=== PATIENT | male | born 1955 | race Two or more races ===

== ENCOUNTER 2021-08-13 09:01 | Day surgery (SDC) | payer OTHER | END 2021-08-13 15:20 | disposition home or self-care (01) | LOC: AMB-ENDOS 09:01 | PROVIDERS: ATTEND Surgery | DX: D12.4 Benign neoplasm of descending colon (principal); Z20.822 Contact with and (suspected) exposure to COVID-19 ==

== ENCOUNTER 2024-07-17 12:45 | Inpatient (IN) | payer OTHER ==
[2024-07-17] MEDS ORDERED: TRIJARDY XR 121 EACH (14:44)
[2024-07-17] MEDS ORDERED: LOSARTAN POTASSIUM (14:45)
[2024-07-17] MEDS ORDERED: DIALYVITE TABL1 EACH (14:45)
[2024-07-17] MEDS ORDERED: ATORVASTATIN (14:45)
[2024-07-17] MEDS ORDERED: FERROUS SULFATE (14:46)
[2024-07-23] MEDS ORDERED: CEFTRIAXONE SODIUM 2,000 MG VIAL ONE (09:22)
[2024-07-23] MEDS ORDERED: METRONIDAZOLE/SODIUM CHLORIDE 500 MG/100 ML PIGGYBACK IV ONE ×2 (09:22→11:00)
[2024-07-23] MEDS ORDERED: BUPIVACAINE HCL/MPF 0.5% 30ML VIAL ONE (09:22)
[2024-07-23] MEDS ORDERED: LIDOCAINE HCL 1%/EPINEPHRINE 20ML VIAL IJ ONE ×2 (09:22→11:00)
[2024-07-23] MEDS ORDERED: BUPIVACAINE HCL 30 ML VIAL IJ ONE (11:00)
[2024-07-23] MEDS ORDERED: CEFTRIAXONE SODIUM 2,000 MG VIAL IV ONE (11:00)
[2024-07-23] MEDS ORDERED: SUGAMMADEX SODIUM 200 MG/2 ML VIAL IV ONE ×2 (11:33→15:30)
[2024-07-23] MEDS ORDERED: OxyCODONE HCL 5 MG TABLET (ROXICODONE) PO PRN (13:00)
[2024-07-23] MEDS ORDERED: RINGERS SOLUTION,LACTATED 1,000 ML IV SCH (13:00)
[2024-07-23] MEDS ORDERED: MORPHINE SULFATE 4 MG/ML CARTRIDGE IV PRN (13:00)
[2024-07-23] MEDS ORDERED: HYOSCYAMINE SULFATE 0.125 MG TAB.SUBL SL SCH (13:00)
[2024-07-23] MEDS ORDERED: DEXTROSE 50 % IN WATER 0.5 G/ML DISP.SYRIN IV PRN (13:00)
[2024-07-23] MEDS ORDERED: ONDANSETRON HCL 2 MG/ML VIAL IV PRN (13:00)
[2024-07-23] MEDS ORDERED: ACETAMINOPHEN 500 MG GEL..CAP PO SCH (14:00)
[2024-07-23 14:29] LABS: HEMATOCRIT 43.4 % (39.0-48.0); MEAN CELL VOLUME 78.6 fL (80.0-100.00); MEAN CORPUSCULAR HEMOGLOBIN 25.5 pg (27.00-32.0); MEAN CORPUSCULAR HGB CONC 32.4 g/dl (32.0-36.0); PLATELET COUNT 179 K/uL (150-450); RED BLOOD COUNT 5.52 M/uL (4.00-6.00); RED CELL DISTRIBUTION WIDTH 16.1 % (11.5-14.5)
[2024-07-23] MEDS ORDERED: HYOSCYAMINE SULFATE 0.125 MG TAB.SUBL ONE (16:29)
[2024-07-23] MEDS ORDERED: METOCLOPRAMIDE HCL 5 MG/ML VIAL ONE (16:29)
[2024-07-23] MEDS ORDERED: GABAPENTIN 300 MG CAPSULE PO ONE (16:30)
[2024-07-23] MEDS ORDERED: GABAPENTIN 300 MG CAPSULE PO SCH (17:00)
[2024-07-23] MEDS ORDERED: METOCLOPRAMIDE HCL 5 MG/ML VIAL IV SCH (17:00)
[2024-07-23] MEDS ORDERED: POLYETHYLENE GLYCOL 3350 17 GM BLIST.PACK PO SCH (17:00)
[2024-07-23] MEDS ORDERED: ONDANSETRON HCL 2 MG/ML VIAL ONE (17:05)
[2024-07-23] MEDS ORDERED: FAMOTIDINE/PF 20 MG/2 ML VIAL IV PUSH SCH (21:00)
[2024-07-24] VITALS: BP 123/60; O2SAT 99
[2024-07-24 07:32] LABS: HEMATOCRIT 40.2 % (39.0-48.0); HEMOGLOBIN 13.3 g/dL (13-16.00); MEAN CELL VOLUME 76.8 fL (80.0-100.00); MEAN CORPUSCULAR HEMOGLOBIN 25.5 pg (27.00-32.0); MEAN CORPUSCULAR HGB CONC 33.2 g/dl (32.0-36.0); PLATELET COUNT 171 K/uL (150-450); RED BLOOD COUNT 5.22 M/uL (4.00-6.00); RED CELL DISTRIBUTION WIDTH 16.1 % (11.5-14.5)
[2024-07-24 08:15] LABS: ALBUMIN 3.1 gm/dL (3.4-5.0); CALCIUM 8.6 mg/dL (8.5-10.1); CREATININE SERUM 0.84 mg/dL (0.70-1.30); GFR 90.6; MAGNESIUM 1.9 mg/dL (1.8-2.4); PHOSPHOROUS 3.3 mg/dL (2.5-4.9); POTASSIUM 4.2 mEq/L (3.5-5.1)
[2024-07-24] MEDS ORDERED: LACTOBACILLUS ACIDOPHILUS 1 CAP CAP PO SCH (09:00)
[2024-07-24 09:47] VITALS: BP 124/70; O2SAT 98
[2024-07-24 16:00] VITALS: BP 122/66; O2SAT 100
[2024-07-24] MEDS ORDERED: ENOXAPARIN SODIUM 40 MG/0.4 ML SYRINGE SUBCUTANEO SCH (17:00)
[2024-07-25] VITALS: BP 155/78; O2SAT 97
[2024-07-25 08:00] VITALS: BP 137/69; O2SAT 97
[2024-07-25] MEDS ORDERED: ENOXAPARIN SODIUM 40 MG/0.4 ML SYRINGE SUBCUTANEO SCH (09:00)
[2024-07-25 16:00] VITALS: BP 131/64; O2SAT 97
[2024-07-26] VITALS: BP 127/63; O2SAT 97
[2024-07-26] MEDS ORDERED: INTESTINEX680 M1 PO (07:35)
[2024-07-26] MEDS ORDERED: LEVSIN/SL0.125 MG SL (07:36)
[2024-07-26 08:37] VITALS: BP 142/71; O2SAT 100
== END 2024-07-26 10:51 | disposition home or self-care (01) | DRG 331 ==
LOC: O/R 07-23 07:22 → SURH 07-23 11:15 → SURG 07-25 14:57
PROVIDERS: ADMIT Surgery; ATTEND Surgery
PROC: 0DBP4ZZ Excision of Rectum, Percutaneous Endoscopic Approach (ICD-10-PCS; 2024-07-23)
PROC: 07BB4ZZ Excision of Mesenteric Lymphatic, Percutaneous Endoscopic Approach (ICD-10-PCS; 2024-07-23)
PROC: 0DJD8ZZ Inspection of Lower Intestinal Tract, Via Natural or Artificial Opening Endoscopic (ICD-10-PCS; 2024-07-23)
PROC: 0DTN4ZZ Resection of Sigmoid Colon, Percutaneous Endoscopic Approach (ICD-10-PCS; principal; 2024-07-23 11:15)
DX: C18.7 Malignant neoplasm of sigmoid colon (principal)